=== PATIENT | female | born 1980 | race Caucasian/White ===

== ENCOUNTER 2017-09-25 05:25 | Day surgery (SDC) | payer OTHER ==
[~2017-09-25] VITALS: Ht 149.9 cm; Wt 63.5 kg
[2017-09-25] MEDS ORDERED: MIDAZOLAM HCL 5 MG/5 ML VIAL IVP ONE (07:50)
[2017-09-25] MEDS ORDERED: KETOROLAC TROMETHAMINE 30 MG VIAL IVP ONE (07:50)
[2017-09-25] MEDS ORDERED: fentaNYL CITRATE/PF 100 MCG/2 ML AMP IVP ONE (07:50)
[2017-09-25] MEDS ORDERED: MIVACURIUM CHLORIDE 20 MG/10 ML VIAL (MIVACRON) INJ ONE (07:50)
[2017-09-25] MEDS ORDERED: PROPOFOL 200MG/ 20ML VIAL (DIPRIVAN) IV ONE (07:50)
[2017-09-25] MEDS ORDERED: NS 1000 ML IV.SOLN IV ONE (07:50)
[2017-09-25] MEDS ORDERED: SEVOFLURANE 15 MIN GAS INH ONE (07:50)
[2017-09-25] MEDS ORDERED: LR 1,000 ML IV.SOLN IV ONE (07:50)
[2017-09-25] MEDS ORDERED: LR 1,000 ML IV SCH (08:28)
[2017-09-25] MEDS ORDERED: MORPHINE 4 MG/ML INJ. SYRINGE IVP PRN ×3 (08:30)
[2017-09-25] MEDS ORDERED: METOCLOPRAMIDE HCL 10 MG/2 ML VIAL IVP PRN (08:30)
[2017-09-25] MEDS ORDERED: IBUPROFEN 800 MG TABLET PO PRN (08:45)
[2017-09-25] MEDS ORDERED: OXYCODONE/ACETAMINOPHEN 5-325 TABLET PO PRN ×2 (08:45)
[2017-09-25] MEDS ORDERED: ONDANSETRON HCL 4 MG/2 ML VIAL IVP PRN (08:45)
[2017-09-25 09:39] VITALS: BP_SYST 121
== END 2017-09-25 10:30 | disposition home or self-care (01) ==
LOC: SDS 05:25 → SMU 05:25 → SDS 10:30
PROVIDERS: ATTEND Obstetrics & Gynecology
DX: N84.0 Polyp of corpus uteri (principal); E55.9 Vitamin D deficiency, unspecified; Z79.899 Other long term (current) drug therapy; Z88.8 Allergy status to other drugs, medicaments and biological substances; Z83.3 Family history of diabetes mellitus; Z98.890 Other specified postprocedural states; Z98.51 Tubal ligation status
CPT/HCPCS: 58563; 88305; J1885; J2250; J2704; J3010; J7030; J7120